=== PATIENT | female | born 1940 | race Caucasian/White ===

== ENCOUNTER 2021-07-26 19:31 | Emergency (ER) | payer OTHER, MEDICARE, SELFPAY ==
[2021-07-26 19:53] VITALS: BMI 16.5
[2021-07-26 19:59] VITALS: BP 110/74; PULSE 89; RESP 16; TEMP 36.9; O2SAT 95
--- NOTE | 2021-07-26 20:33 | W.ED.GENADLT ---
HPI - General Adult General: Chief complaint: Urogenital-Female Stated complaint: DELACRUZ PROBLEMS Time Seen by Provider: 07/26/21 19:49 History of Present Illness: Patient is an 80-year-old female chronic indwelling Delacruz for cervical cancer currently on hospice presented to emergency room after nursing staff at hospice was unable to replace patient's Delacruz after patient's monthly Delacruz removal. Patient has no focal complaints of flank pain, dysuria, polyuria, hematuria fever or chills. Patient normally uses a 16 [place] Delacruz. Nursing staff at hospice care attempted to place a 16 [place] Delacruz as well as a 12 [place] Delacruz without any success. Onset: 2pm Duration:ongoing for the last 6 hrs Location:hospice center Severity: mild Associated symptoms: Deny chest pain, dyspnea, nausea, rash, palpitations or vomiting Review of Systems Const: Denies: fever(s) or chills Eyes: Denies: change in vision ENMT: Denies: mouth pain Card: Denies: chest pain or palpitations Resp: Denies: dyspnea or non-productive cough GI: Denies: abdominal pain, nausea, vomiting or diarrhea : Reports: other (inability to place a delacruz); Denies: dysuria Musc: Denies: extremity pain Skin/Breast: Denies: rash or new lesions Neuro: Denies: weakness in extremities Psych: Reports: other (Normal mood) Rocky/Lymph: Denies: easy bruising PFS ED PFSH: Medical History (Updated 07/26/21 @ 20:36 by Treva Mantilla MD) Cervical cancer Hospice care Social History (Updated 07/26/21 @ 20:36 by Treva Mantilla MD) Smoking and tobacco status: never smoked Alcohol intake: never Substance/Drug Use: never Physical Exam Const: COMMON NORMALS: alert HENMT: COMMON NORMALS: atraumatic HEAD & SCALP: atraumatic MOUTH: moist mucous membranes not abnormal Eye: COMMON NORMALS: EOMs intact bilaterally and conjunctivae normal CONJUNCTIVA: Yes conjunctivae normal Neck/C-Spine: COMMON NORMALS: full ROM and supple Resp: COMMON NORMALS: normal respiratory effort and clear to auscultation bilaterally AUSCULTATION: clear to auscultation bilaterally Cardio: COMMON NORMALS: regular rate RATE: regular rate GI: COMMON NORMALS: Soft to palpation and non-tender PALPATION: Yes Soft to palpation Extremity: COMMON NORMALS: full ROM Neuro: SENSORIUM/ORIENTATION: Yes alert MOTOR EXAM: No Abnormal motor strength present and Other motor observations present (no focal motor deficits) Psych: COMMON NORMALS: speech normal SPEECH: Yes normal speech MOOD & AFFECT: Yes euthymic mood Course Vital Signs: Vital signs: Vital Signs Temperature 98.4 F 07/26/21 19:59 Pulse Rate 89 07/26/21 19:59 Respiratory Rate 16 07/26/21 19:59 Blood Pressure 110/74 07/26/21 19:59 Pulse Oximetry 95 07/26/21 19:59 MDM - General Adult Medical Decision Making 80-year-old female with chronic Delacruz dependence presenting to emergency room requesting for new Delacruz. Exam unremarkable. Patient is afebrile. 16 Fr Delacruz was successfully placed today by nursing staff. Patient will be transferred back to hospice care. Discharge Plan Discharge Patient Disposition: Home Clinical Impression: Delacruz catheter in place Condition: Stable Discharge Orders: Discharge ED (Routine); Ordered 07/26/21 Ordered By: Treva Mantilla Referrals: Tera Myers DO [Primary Care Provider] - Discharge Diet: Advance as tolerated Discharge Activity: Increase activity as tolerated Patient Instructions: Delacruz Catheter Placement and Care (ED) Coding Level of Care Code ED [employer] for [facility]
[2021-07-26 22:09] VITALS: BP 123/75; PULSE 87; RESP 18; O2SAT 99
== END 2021-07-26 22:11 | disposition home or self-care (01) ==
PROVIDERS: Emergency Provider Emergency Medicine; PCP Family Medicine
DX: Z46.6 Encounter for fitting and adjustment of urinary device (principal); Z85.41 Personal history of malignant neoplasm of cervix uteri
CPT/HCPCS: 51702; 99282